=== PATIENT | female | born 1960 | race Caucasian/White ===

== ENCOUNTER 2018-07-14 06:12 | Day surgery (SDC) | payer OTHER ==
[~2018-07-14] VITALS: Ht 147.3 cm; Wt 55.4 kg
[2018-07-14 07:38] VITALS: Ht 147.3 cm; Wt 55.4 kg
[2018-07-14] MEDS ORDERED: MAGNESIUM PO (07:52)
[2018-07-14] MEDS ORDERED: JANUMET PO (07:52)
[2018-07-14] MEDS ORDERED: LISINOPRIL PO (07:52)
[2018-07-14] MEDS ORDERED: CHOLESTEROL MED PO (07:52)
[2018-07-14] MEDS ORDERED: GEMF600T8 PO (07:52)
[2018-07-14 08:09] VITALS: BP 146/79; PULSE 86; RESP 18
[2018-07-14] MEDS ORDERED: FENTAnyl 50 MCG/ML VIAL ONE (08:46)
[2018-07-14] MEDS ORDERED: MIDAZOLAM 1 MG/ML 2 ML INJ ONE ×3 (08:46)
[2018-07-14 09:15] VITALS: BP 101/66; PULSE 65; RESP 18
== END 2018-07-14 10:25 | disposition home or self-care (01) ==
LOC: GIL 06:12
PROVIDERS: ATTEND Internal Medicine Gastroenterology
DX: Z12.11 Encounter for screening for malignant neoplasm of colon (principal); K29.50 Unspecified chronic gastritis without bleeding; K64.8 Other hemorrhoids; E11.9 Type 2 diabetes mellitus without complications; I10 Essential (primary) hypertension
CPT/HCPCS: 43239; 45378; 88305; 88312; J2250; J3010; Z7610